=== PATIENT | female | born 1970 | race American Indian/Alaskan Native ===

== ENCOUNTER 2017-02-12 16:00 | Emergency (ER) | payer SELFPAY ==
[2017-02-12 16:31] VITALS: BP 138/102
--- NOTE | 2017-02-12 16:34 | Emergency Department Report ---
Chief Complaint: Abdominal Pain Stated Complaint: CROHN'S DISEASE/BODY ACHES Time Seen by Provider: 02/12/17 16:30 - HPI History of Present Illness: pt c/o a few days of lower abd pain and passing bloody stools. PT states this feels like the last time she was told that she had an infection that started with a "D" PT states she has a hx of crohn's - ROS Review of Systems: + back pain + nausea - vomiting + loose bloody stools - menstrual problem - Exam Vital Signs: Vital Signs 02/12/17 16:24 Temperature 98.4 F Pulse Rate 58 L Respiratory 18 Rate Blood Pressure 138/102 O2 Sat by Pulse 96 Oximetry Physical Exam: pt looks well, non toxic. gcs 15 abd soft, + tenderness to LLQ MSE screening note: Focused history and physical exam performed. Due to findings the following was ordered: labs ED Disposition for MSE Condition: Stable Instructions: Abdominal Pain (ED)
[2017-02-12 18:02] LABS: Basophils % (Auto) 0.9 % (0.0-1.8); Eosinophils % (Auto) 2.4 % (0.0-4.3); Hematocrit 26.1 % (30.3-42.9); Hemoglobin 7.9 gm/dl (10.1-14.3); Mean Corpuscular HGB Conc 30 % (30-34); Mean Corpuscular Hemoglobin 17 pg (28-32); Mean Corpuscular Volume 56 fl (79-97); Platelet Count 450 K/mm3 (140-440); Red Blood Count 4.65 M/mm3 (3.65-5.03); Red Cell Distribution Width 17.4 % (13.2-15.2); White Blood Count 5.4 K/mm3 (4.5-11.0)
[2017-02-12 18:11] LABS: INR 0.99 (0.87-1.13)
[2017-02-12 18:12] LABS: Partial Thromboplastin Time 31.1 Sec. (24.2-36.6)
[2017-02-12 18:18] LABS: Alanine Aminotransferase 6 units/L (7-56); Albumin 3.5 g/dL (3.9-5); Albumin/Globulin Ratio 0.8 %; Alkaline Phosphatase 95 units/L (35-129); Anion Gap 17 mmol/L; BUN/Creatinine Ratio 11.25; Bilirubin,Total 0.2 mg/dL (0.1-1.2); Blood Urea Nitrogen 9 mg/dL (7-17); Carbon Dioxide 26 mmol/L (22-30); Chloride 100.3 mmol/L (98-107); Glucose 91 mg/dL (65-100); Lipase 18 units/L (13-60); Potassium 3.1 mmol/L (3.6-5.0); Sodium 140 mmol/L (137-145); Total Protein 7.8 g/dL (6.3-8.2)
--- NOTE | 2017-02-13 15:08 | ED Elopement Review ---
ED Pt Elopement review - Results review Lab results: Laboratory Tests 02/12/17 02/12/17 02/12/17 17:49 17:49 17:49 WBC 5.4 RBC 4.65 Hgb 7.9 L Hct 26.1 L MCV 56 L MCH 17 L MCHC 30 RDW 17.4 H Plt Count 450 H Lymph % (Auto) 24.9 Luce % (Auto) 10.3 H Eos % (Auto) 2.4 Baso % (Auto) 0.9 Lymph # 1.4 Luce # 0.6 Eos # 0.1 Baso # 0.0 Seg Neutrophils % 61.5 Seg Neutrophils # 3.3 PT 13.0 INR 0.99 APTT 31.1 Sodium 140 Potassium 3.1 L Chloride 100.3 Carbon Dioxide 26 Anion Gap 17 BUN 9 Creatinine 0.8 Estimated GFR > 60 BUN/Creatinine Ratio 11.25 Glucose 91 Calcium 9.0 Total Bilirubin 0.2 AST 12 ALT 6 L Alkaline Phosphatase 95 Total Protein 7.8 Albumin 3.5 L Albumin/Globulin Ratio 0.8 Lipase 18 - Call Back decision Pt Call Back Decision: No action required
== END 2017-02-12 20:55 | disposition left against medical advice (07) ==
LOC: ED 16:00
DX: R10.32 Left lower quadrant pain (principal); K92.1 Melena; M54.9 Dorsalgia, unspecified; K50.90 Crohn's disease, unspecified, without complications; Z53.21 Procedure and treatment not carried out due to patient leaving prior to being seen by health care provider
CPT/HCPCS: 36415; 80053; 83690; 85025; 85610; 85730

== ENCOUNTER 2020-03-31 22:58 | Emergency (ER) | payer MEDICAID ==
[2020-04-01 00:14] LABS: Basophils % (Auto) 0.4 % (0.0-1.8); Eosinophils # (Auto) 0.1 K/mm3 (0.0-0.4); Eosinophils % (Auto) 0.9 % (0.0-4.3); Hematocrit 34.8 % (30.3-42.9); Hemoglobin 10.8 gm/dl (10.1-14.3); Lymphocytes # (Auto) 1.3 K/mm3 (1.2-5.4); Lymphocytes % (Auto) 20.9 % (13.4-35.0); Mean Corpuscular HGB Conc 31 % (30-34); Monocytes # (Auto) 0.7 K/mm3 (0.0-0.8); Monocytes % (Auto) 11.8 % (0.0-7.3); Platelet Count 465 K/mm3 (140-440); Red Blood Count 5.09 M/mm3 (3.65-5.03); Red Cell Distribution Width 17.9 % (13.2-15.2)
--- NOTE | 2020-04-01 00:14 | Emergency Department Report ---
ED GI Bleed HPI - General Chief complaint: GI Bleed Stated complaint: ABDOMINAL AND CHEST PAIN Time Seen by Provider: 04/01/20 00:09 Source: patient Mode of arrival: Ambulatory Limitations: No Limitations - History of Present Illness Initial comments: Patient is a 42-year-old female with history of Crohn's that presents emergency room with complaints of Crohn's flareup, abdominal pain, dizziness, nausea, chest discomfort. Patient dates her symptoms been going on for 2 to 3 days. Patient states that her rectal bleeding increase today. Patient states that copious amounts of blood coming from her rectum. Patient describes it as bright red blood. Patient states she has a long history of Crohn's. Patient states that she has nausea without vomiting. Patient states her symptoms are better with rest and worse with exertion. Patient dates her abdominal pain is a 10 out of 10. Patient states she called her GI doctor and he told her to come into the hospital. MD complaint: blood streaked stool -: Sudden Location: LLQ, RLQ Radiation: none Severity scale (0 -10): 10 Quality: sharp Consistency: constant Improves with: rest Worsens with: movement Context: history of GI bleed, other Associated Symptoms: abdominal pain, nausea, malaise, other. denies: vomiting, epistaxis, fever/chills, headaches, loss of appetite, rash, shortness of breath, syncope, weakness Treatments Prior to Arrival: none - Related Data Previous Rx's Medication Instructions Recorded Last Taken Type labetaloL [Labetalol 200mg TAB] 200 mg PO BID #60 tablet 12/22/19 Unknown Rx levoFLOXacin [Levaquin TAB] 500 mg PO Q24HR #7 tablet 04/01/20 Unknown Rx metroNIDAZOLE [Flagyl TAB] 500 mg PO Q8HR 7 Days #21 tablet 04/01/20 Unknown Rx oxyCODONE /ACETAMINOPHEN [Percocet 1 tab PO Q6HR PRN #12 tablet 04/01/20 Unknown Rx 5/325 mg] predniSONE [Deltasone] 40 mg PO QDAY #5 tab 04/01/20 Unknown Rx Allergies Allergy/AdvReac Type Severity Reaction Status Date / Time Penicillins Allergy Rash Verified 08/19/14 12:46 ED Review of Systems ROS: Stated complaint: ABDOMINAL AND CHEST PAIN Other details as noted in HPI Constitutional: denies: chills, fever Eyes: denies: eye pain, eye discharge, vision change ENT: denies: ear pain, throat pain Respiratory: denies: cough, shortness of breath, wheezing Cardiovascular: denies: palpitations Endocrine: no symptoms reported Gastrointestinal: abdominal pain, nausea, hematochezia. denies: vomiting, constipation, hematemesis, melena Genitourinary: denies: urgency, dysuria, discharge Musculoskeletal: denies: back pain, joint swelling, arthralgia Skin: denies: rash, lesions Neurological: denies: headache, weakness, paresthesias Psychiatric: denies: anxiety, depression Hematological/Lymphatic: denies: easy bleeding, easy bruising ED Past Medical Hx - Past Medical History Previous Medical History?: Yes Hx Congestive Heart Failure: No Hx Diabetes: No Hx Pulmonary Embolism: No Hx Sickle Cell Disease: Yes (SICKLE CELL TRAIT) Hx Arthritis: Yes (rhuematoid) Hx Headaches / Migraines: No Hx Kidney Stones: No Hx Asthma: No Hx COPD: No Hx Tuberculosis: No Hx Dementia: No Hx HIV: No Additional medical history: Anemia. Crohns disease. rheumatiod arthritis - Surgical History Past Surgical History?: Yes Hx Coronary Stent: No Hx Open Heart Surgery: No Hx Cholecystectomy: No Hx Appendectomy: No Hx Breast Surgery: No Additional Surgical History: D+C - Family History Family history: no significant - Social History Smoking Status: Current Every Day Smoker Substance Use Type: None - Medications Home Medications: Home Medications Medication Instructions Recorded Confirmed Last Taken Type labetaloL [Labetalol 200mg TAB] 200 mg PO BID #60 tablet 12/22/19 Unknown Rx levoFLOXacin [Levaquin TAB] 500 mg PO Q24HR #7 tablet 04/01/20 Unknown Rx metroNIDAZOLE [Flagyl TAB] 500 mg PO Q8HR 7 Days #21 tablet 04/01/20 Unknown Rx oxyCODONE /ACETAMINOPHEN [Percocet 1 tab PO Q6HR PRN #12 tablet 04/01/20 Unknown Rx 5/325 mg] predniSONE [Deltasone] 40 mg PO QDAY #5 tab 04/01/20 Unknown Rx ED Physical Exam - General Limitations: No Limitations General appearance: alert, in no apparent distress - Head Head exam: Present: atraumatic, normocephalic - Eye Eye exam: Present: normal appearance - ENT ENT exam: Present: mucous membranes moist - Neck Neck exam: Present: normal inspection - Respiratory Respiratory exam: Present: normal lung sounds bilaterally. Absent: respiratory distress - Cardiovascular Cardiovascular Exam: Present: regular rate, normal rhythm. Absent: systolic murmur, diastolic murmur, rubs, gallop - GI/Abdominal GI/Abdominal exam: Present: soft, tenderness (Bilateral lower quadrant tenderness to palpation.), normal bowel sounds - Extremities Exam Extremities exam: Present: normal inspection - Back Exam Back exam: Present: normal inspection - Neurological Exam Neurological exam: Present: alert, oriented X3 - Psychiatric Psychiatric exam: Present: normal affect, normal mood - Skin Skin exam: Present: warm, dry, intact, normal color. Absent: rash ED Course Vital Signs 03/31/20 04/01/20 04/01/20 23:13 00:27 03:15 Temperature 98.5 F Pulse Rate 108 H 96 H 95 H Respiratory 16 17 17 Rate Blood Pressure 155/99 Blood Pressure 156/111 159/97 [Right] O2 Sat by Pulse 95 99 97 Oximetry - Reevaluation(s) Reevaluation #1: Patient states that her dizziness and nausea have resolved. Patient states her abdominal pain is better but is starting to come back. Patient will be given another dose of Dilaudid and Solu-Medrol and Levaquin. Patient states she agrees with discharge. I discussed all results and clinical findings with patient. I discussed plan of care with patient. Patient agrees with plan of care. Patient is stable for discharge. Patient will be discharged home. Patient given discharge instructions. Patient voiced understanding of discharge instructions. 04/01/20 02:52 Reevaluation #2: Patient's pain improved. Patient is ready for discharge. Discharge activated. 04/01/20 03:37 - Consultations Consultation #1: Discussed case with GI, Dr. Heaton. Dr. eHaton states that this patient is a frequent flyer. I reviewed labs with Dr. Heaton and the patient's presenting illness. Dr. Heaton recommends discharge with Levaquin and Flagyl and a steroids of prednisone 40 mg daily for a week and the GI will write a 3-week taper for the patient. Patient will also need to follow-up with GI on Friday. 04/01/20 02:39 04/01/20 03:36 ED Medical Decision Making - Lab Data Result diagrams: 03/31/20 23:38 03/31/20 23:38 - Medical Decision Making Patient is a 49-year-old female that presents emergency room with complaints of Crohn's flare and bright red blood per rectum, dizziness, nausea. Patient has severe Crohn's disease.. Patient has come to this hospital multiple times. Patient's labs are essentially unremarkable. Patient was given fluids in the ER and pain meds. Patient's dizziness and abdominal pain improved with treatment. Patient given a second dose of Dilaudid prior to discharge and her pain improved dramatically. Patient also given Levaquin and Solu-Medrol which improved her pain. Patient discharged home with Levaquin, Flagyl, oxycodone and prednisone 40 mg. Patient stable for discharge. I discussed the case with GI and GI recommends not admitting the patient and sending her home with outpatient treatment and to follow-up with her GI as soon as possible. - Differential Diagnosis Crohn's flareup, abdominal pain, dizziness, nausea, dehydration, BRBPR Critical care attestation.: If time is entered above; I have spent that time in minutes in the direct care of this critically ill patient, excluding procedure time. ED Disposition Clinical Impression: BRBPR (bright red blood per rectum), Dizziness, Nausea alone Crohn's colitis Qualifiers: Digestive disease complication type: without complication Qualified Code(s): K50.10 - Crohn's disease of large intestine without complications Abdominal pain Qualifiers: Abdominal location: lower abdomen, unspecified Qualified Code(s): R10.30 - Lower abdominal pain, unspecified UTI (urinary tract infection) Qualifiers: Urinary tract infection type: acute cystitis Hematuria presence: with hematuria Qualified Code(s): N30.01 - Acute cystitis with hematuria Disposition: - TO HOME OR SELFCARE Is pt being admited?: No Does the pt Need Aspirin: No Condition: Stable Instructions: Rectal Bleeding (ED), Crohn Disease (ED), Urinary Tract Infection in Women (ED) Additional Instructions: Patient to follow-up with primary care in 2 to 3 days. Patient to follow-up with gastroenterology in 2 to 3 days. Patient to rest. Patient to increase w ater. Patient to avoid strenuous exercise or heavy lifting until cleared by gastroenterology. Patient to take Tylenol or ibuprofen as needed for pain. Patient to take meds as directed. Patient to return to the ER if condition worsens, changes or new symptoms arise. Prescriptions: predniSONE [Deltasone] 40 mg PO QDAY #5 tab metroNIDAZOLE [Flagyl TAB] 500 mg PO Q8HR 7 Days #21 tablet levoFLOXacin [Levaquin TAB] 500 mg PO Q24HR #7 tablet oxyCODONE /ACETAMINOPHEN [Percocet 5/325 mg] 1 tab PO Q6HR PRN #12 tablet PRN Reason: Pain Referrals: PRIMARY CARE, [Primary Care Provider] - 2-3 Days SCOT HEATON MD [Staff Physician] - 2-3 Days Forms: Accompanied Note Time of Disposition: 02:57
[2020-04-01] MEDS ORDERED: SODIUM CHLORIDE 0.9% 1000 ML 1,000 ML IV ONE (00:18)
[2020-04-01] MEDS ORDERED: HYDROmorphone 1 MG/1 ML INJ IV ONE ×2 (00:18→02:47)
[2020-04-01 00:19] LABS: Alanine Aminotransferase 8 units/L (7-56); Albumin 3.6 g/dL (3.9-5); BUN/Creatinine Ratio 27; Blood Urea Nitrogen 16 mg/dL (7-17); Calcium 9.1 mg/dL (8.4-10.2); Hemolysis Index 0
[2020-04-01 00:26] LABS: Mean Corpuscular Volume 68 fl (79-97)
[2020-04-01 00:55] LABS: Bacteria,Urine 1+ /HPF (Negative); Bilirubin,Urine SM (Negative); Blood,Urine SM (Negative); Color,Urine Yellow (Yellow); Mucus,Urine 1+ /HPF
[2020-04-01 01:10] LABS: Ictotest,Urine Negative (Negative)
[2020-04-01] MEDS ORDERED: methylPREDNISolone Sod Succinate 125 MG/2 ML INJ IV ONE (02:47)
[2020-04-01 03:16] VITALS: BP 159/97
== END 2020-04-01 04:00 | disposition home or self-care (01) ==
LOC: ED 22:58
DX: K50.10 Crohn's disease of large intestine without complications (principal); N39.0 Urinary tract infection, site not specified; K62.5 Hemorrhage of anus and rectum; M13.88 Other specified arthritis, other site; D57.3 Sickle-cell trait; F17.200 Nicotine dependence, unspecified, uncomplicated; Z86.2 Personal history of diseases of the blood and blood-forming organs and certain disorders involving the immune mechanism; Z88.0 Allergy status to penicillin
CPT/HCPCS: 36415; 80053; 81001; 85025; 86850; 86900; 86901; 87086; 96361; 96365; 96375; 96376; 99283; J1170; J1956; J2930; J7030

== ENCOUNTER 2020-08-10 13:34 | Emergency (ER) | payer MEDICAID ==
[2020-08-10 14:00] VITALS: BP 153/108
[2020-08-10 14:49] LABS: Basophils % (Auto) 0.3 % (0.0-1.8); Eosinophils % (Auto) 0.2 % (0.0-4.3); Hematocrit 33.7 % (30.3-42.9); Hemoglobin 10.3 gm/dl (10.1-14.3); Lymphocytes # (Auto) 1.5 K/mm3 (1.2-5.4); Lymphocytes % (Auto) 24.4 % (13.4-35.0); Mean Corpuscular HGB Conc 31 % (30-34); Monocytes # (Auto) 0.8 K/mm3 (0.0-0.8); Monocytes % (Auto) 13.1 % (0.0-7.3); Platelet Count 456 K/mm3 (140-440); Red Blood Count 5.24 M/mm3 (3.65-5.03); Red Cell Distribution Width 19.3 % (13.2-15.2)
[2020-08-10 15:04] LABS: BUN/Creatinine Ratio 13; Blood Urea Nitrogen 12 mg/dL (7-17); Calcium 9.2 mg/dL (8.4-10.2); Hemolysis Index 1
[2020-08-10 15:08] LABS: Mean Corpuscular Volume 64 fl (79-97)
[2020-08-10] MEDS ORDERED: ONDANSETRON 4 MG/2 ML INJ IV ONE (16:56)
[2020-08-10] MEDS ORDERED: MORPHINE 4 MG/1 ML INJ IV ONE ×2 (16:56→19:45)
[2020-08-10] MEDS ORDERED: SODIUM CHLORIDE 0.9% 1000 ML 1,000 ML IV ONE (16:56)
--- NOTE | 2020-08-10 17:51 | Emergency Department Report ---
ED Abdominal Pain HPI - General Chief Complaint: Abdominal Pain Stated Complaint: CROHNS FLARE Time Seen by Provider: 08/10/20 16:37 Source: patient Mode of arrival: Ambulatory Limitations: No Limitations - History of Present Illness Initial Comments: This is a 49-year-old female nontoxic, well nourished in appearance, no acute signs of distress presents to the ED with c/o of nausea and vomiting and abdominal pain several days. Patient describes vomiting as food content and yellow gastric acid. Patient describes abdominal pain as cramping and aching with level of 8/10 diffuse. Patient has hx of Chrons disease and sees GI doctor. Patient stated symptoms are similar to Chrons flare. Agrees to blood in stool with some mucus. Patient denies chest pain, short of breath, fever, hemoptysis, chills, headache, stiff neck, numbness or tingling. Patient denies any diarrhea or constipation. Denies any vomiting blood. Patient denies any recent travels. Patient stated allergies to penicillin. MD Complaint: abdominal pain -: days(s) Location: diffuse Radiation: none Migration to: no migration Severity: mild Severity scale (0 -10): 8 Quality: cramping, aching Consistency: constant Improves With: nothing Worsens With: nothing Associated Symptoms: nausea, vomiting, diarrhea, hematochezia. denies: fever, chills, constipation, dysuria, hematemesis, melena, hematuria, anorexia, syncope - Related Data Previous Rx's Medication Instructions Recorded Last Taken Type labetaloL [Labetalol 200mg TAB] 200 mg PO BID #60 tablet 12/22/19 Unknown Rx levoFLOXacin [Levaquin TAB] 500 mg PO Q24HR #7 tablet 04/01/20 Unknown Rx metroNIDAZOLE [Flagyl TAB] 500 mg PO Q8HR 7 Days #21 tablet 04/01/20 Unknown Rx oxyCODONE /ACETAMINOPHEN [Percocet 1 tab PO Q6HR PRN #12 tablet 04/01/20 Unknown Rx 5/325 mg] predniSONE [Deltasone] 40 mg PO QDAY #5 tab 04/01/20 Unknown Rx Ciprofloxacin HCl [Ciprofloxacin 500 mg PO Q12HR #14 tab 08/10/20 Unknown Rx TAB] Ondansetron [Zofran Odt] 4 mg PO Q8HR PRN #12 tab.rapdis 09/24/20 Unknown Rx Prednisone [predniSONE 10 mg 10 mg PO .TAPER #1 tab.ds.pk 08/10/20 Unknown Rx (6-Day Pack, 21 Tabs)] metroNIDAZOLE [Flagyl] 500 mg PO Q12HR #14 tab 08/10/20 Unknown Rx Allergies Allergy/AdvReac Type Severity Reaction Status Date / Time Penicillins Allergy Rash Verified 08/10/20 13:57 ED Review of Systems ROS: Stated complaint: CROHNS FLARE Other details as noted in HPI Constitutional: denies: chills, fever Eyes: denies: eye pain, eye discharge, vision change ENT: denies: ear pain, throat pain Respiratory: denies: cough, shortness of breath, wheezing Cardiovascular: denies: chest pain, palpitations Endocrine: no symptoms reported Gastrointestinal: abdominal pain, nausea, vomiting, diarrhea, hematochezia. denies: constipation, hematemesis, melena Genitourinary: denies: urgency, dysuria, discharge Musculoskeletal: denies: back pain, joint swelling, arthralgia Skin: denies: rash, lesions Neurological: denies: headache, weakness, paresthesias Psychiatric: denies: anxiety, depression Hematological/Lymphatic: denies: easy bleeding, easy bruising ED Past Medical Hx - Past Medical History Previous Medical History?: Yes Hx Congestive Heart Failure: No Hx Diabetes: No Hx Pulmonary Embolism: No Hx Sickle Cell Disease: Yes (SICKLE CELL TRAIT) Hx Arthritis: Yes (rhuematoid) Hx Headaches / Migraines: No Hx Kidney Stones: No Hx Asthma: No Hx COPD: No Hx Tuberculosis: No Hx Dementia: No Hx HIV: No Additional medical history: Anemia. Crohns disease. rheumatiod arthritis - Surgical History Past Surgical History?: Yes Hx Coronary Stent: No Hx Open Heart Surgery: No Hx Cholecystectomy: No Hx Appendectomy: No Hx Breast Surgery: No Additional Surgical History: D+C - Social History Smoking Status: Current Every Day Smoker Substance Use Type: Alcohol - Medications Home Medications: Home Medications Medication Instructions Recorded Confirmed Last Taken Type labetaloL [Labetalol 200mg TAB] 200 mg PO BID #60 tablet 12/22/19 Unknown Rx levoFLOXacin [Levaquin TAB] 500 mg PO Q24HR #7 tablet 04/01/20 Unknown Rx metroNIDAZOLE [Flagyl TAB] 500 mg PO Q8HR 7 Days #21 tablet 04/01/20 Unknown Rx oxyCODONE /ACETAMINOPHEN [Percocet 1 tab PO Q6HR PRN #12 tablet 04/01/20 Unknown Rx 5/325 mg] predniSONE [Deltasone] 40 mg PO QDAY #5 tab 04/01/20 Unknown Rx Ciprofloxacin HCl [Ciprofloxacin 500 mg PO Q12HR #14 tab 08/10/20 Unknown Rx TAB] Ondansetron [Zofran Odt] 4 mg PO Q8HR PRN #12 tab.rapdis 08/10/20 Unknown Rx Prednisone [predniSONE 10 mg 10 mg PO .TAPER #1 tab.ds.pk 08/10/20 Unknown Rx (6-Day Pack, 21 Tabs)] metroNIDAZOLE [Flagyl] 500 mg PO Q12HR #14 tab 08/10/20 Unknown Rx ED Physical Exam - General Limitations: No Limitations General appearance: alert, in no apparent distress - Head Head exam: Present: atraumatic, normocephalic - Eye Eye exam: Present: normal appearance - Neck Neck exam: Present: normal inspection, full ROM. Absent: tenderness, meningismus, lymphadenopathy - Respiratory Respiratory exam: Present: normal lung sounds bilaterally. Absent: respiratory distress, wheezes, rales, rhonchi, stridor, chest wall tenderness, accessory muscle use, decreased breath sounds, prolonged expiratory - Cardiovascular Cardiovascular Exam: Present: regular rate, normal rhythm, tachycardia, normal heart sounds. Absent: irregular rhythm, systolic murmur, diastolic murmur, rubs, gallop - GI/Abdominal GI/Abdominal exam: Present: soft, tenderness (diffuse), normal bowel sounds. Absent: distended, guarding, rebound, rigid, diminished bowel sounds - Rectal Rectal exam: Present: normal inspection, normal rectal tone, heme (+) stool, bloody stool, other (Kahlil Wyatt RN present during exam). Absent: decreased rectal tone, black stool, fecal impaction, hemorrhoids, mass, tenderness - Extremities Exam Extremities exam: Present: normal inspection, full ROM - Back Exam Back exam: Present: normal inspection, full ROM. Absent: tenderness, CVA tenderness (R), CVA tenderness (L), muscle spasm, paraspinal tenderness, vertebral tenderness, rash noted - Neurological Exam Neurological exam: Present: alert, oriented X3, normal gait - Psychiatric Psychiatric exam: Present: normal affect, normal mood - Skin Skin exam: Present: warm, dry, intact, normal color. Absent: rash ED Course Vital Signs 08/10/20 08/10/20 08/10/20 13:57 17:23 21:14 Temperature 98.7 F 98.5 F Pulse Rate 110 H 89 Respiratory 20 20 20 Rate Blood Pressure 153/108 O2 Sat by Pulse 99 100 Oximetry - Reevaluation(s) Reevaluation #1: 08/10/20 17:51 Patient is speaking in full sentences with no signs of distress noted. - Consultations Consultation #1: 08/10/20 21:01 Patient has been consulted with Dr. Heck about patient history, physical exam, and labs/CT results and agrees to ED plan of care and discharge plan of care. ED Medical Decision Making - Lab Data Result diagrams: 08/10/20 14:33 08/10/20 14:33 Lab Results 08/10/20 08/10/20 08/10/20 Range/Units 14:33 14:33 17:30 WBC 6.1 (4.5-11.0) K/mm3 RBC 5.24 H (3.65-5.03) M/mm3 Hgb 10.3 (10.1-14.3) gm/dl Hct 33.7 (30.3-42.9) % MCV 64 L (79-97) fl MCH 20 L (28-32) pg MCHC 31 (30-34) % RDW 19.3 H (13.2-15.2) % Plt Count 456 H (140-440) K/mm3 Lymph % (Auto) 24.4 (13.4-35.0) % Divide % (Auto) 13.1 H (0.0-7.3) % Eos % (Auto) 0.2 (0.0-4.3) % Baso % (Auto) 0.3 (0.0-1.8) % Lymph # (Auto) 1.5 (1.2-5.4) K/mm3 Divide # (Auto) 0.8 (0.0-0.8) K/mm3 Eos # (Auto) 0.0 (0.0-0.4) K/mm3 Baso # (Auto) 0.0 (0.0-0.1) K/mm3 Seg Neutrophils % 62.0 (40.0-70.0) % Seg Neutrophils # 3.8 (1.8-7.7) K/mm3 Sodium 137 (137-145) mmol/L Potassium 3.5 L (3.6-5.0) mmol/L Chloride 100.0 (98-107) mmol/L Carbon Dioxide 20 L (22-30) mmol/L Anion Gap 21 mmol/L BUN 12 (7-17) mg/dL Creatinine 0.9 (0.6-1.2) mg/dL Estimated GFR > 60 ml/min BUN/Creatinine Ratio 13 % Glucose 84 (65-100) mg/dL Calcium 9.2 (8.4-10.2) mg/dL Total Bilirubin < 0.20 (0.1-1.2) mg/dL Direct Bilirubin < 0.2 (0-0.2) mg/dL Indirect Bilirubin 0.0 mg/dL AST 16 (5-40) units/L ALT 15 (7-56) units/L Alkaline Phosphatase 81 (35-129) units/L Total Protein 6.9 (6.3-8.2) g/dL Albumin 3.4 L (3.9-5) g/dL Albumin/Globulin Ratio 1.0 % Lipase 20 (13-60) units/L Urine Color (Yellow) Urine Turbidity (Clear) Urine pH (5.0-7.0) Ur Specific [place] (1.003-1.030) Urine Protein (Negative) mg/dL Urine Glucose (UA) (Negative) mg/dL Urine Ketones (Negative) mg/dL Urine Blood (Negative) Urine Nitrite (Negative) Urine Bilirubin (Negative) Urine Urobilinogen (<2.0) mg/dL Ur Leukocyte Esterase (Negative) Urine WBC (Auto) (0.0-6.0) /HPF Urine RBC (Auto) (0.0-6.0) /HPF U Epithel Cells (Auto) (0-13.0) /HPF Urine HCG, Qual (Negative) 08/10/20 Range/Units 20:06 WBC (4.5-11.0) K/mm3 RBC (3.65-5.03) M/mm3 Hgb (10.1-14.3) gm/dl Hct (30.3-42.9) % MCV (79-97) fl MCH (28-32) pg MCHC (30-34) % RDW (13.2-15.2) % Plt Count (140-440) K/mm3 Lymph % (Auto) (13.4-35.0) % Divide % (Auto) (0.0-7.3) % Eos % (Auto) (0.0-4.3) % Baso % (Auto) (0.0-1.8) % Lymph # (Auto) (1.2-5.4) K/mm3 Divide # (Auto) (0.0-0.8) K/mm3 Eos # (Auto) (0.0-0.4) K/mm3 Baso # (Auto) (0.0-0.1) K/mm3 Seg Neutrophils % (40.0-70.0) % Seg Neutrophils # (1.8-7.7) K/mm3 Sodium (137-145) mmol/L Potassium (3.6-5.0) mmol/L Chloride (98-107) mmol/L Carbon Dioxide (22-30) mmol/L Anion Gap mmol/L BUN (7-17) mg/dL Creatinine (0.6-1.2) mg/dL Estimated GFR ml/min BUN/Creatinine Ratio % Glucose (65-100) mg/dL Calcium (8.4-10.2) mg/dL Total Bilirubin (0.1-1.2) mg/dL Direct Bilirubin (0-0.2) mg/dL Indirect Bilirubin mg/dL AST (5-40) units/L ALT (7-56) units/L Alkaline Phosphatase (35-129) units/L Total Protein (6.3-8.2) g/dL Albumin (3.9-5) g/dL Albumin/Globulin Ratio % Lipase (13-60) units/L Urine Color Straw (Yellow) Urine Turbidity Clear (Clear) Urine pH 6.0 (5.0-7.0) Ur Specific [place] 1.010 (1.003-1.030) Urine Protein <15 mg/dl (Negative) mg/dL Urine Glucose (UA) Neg (Negative) mg/dL Urine Ketones Neg (Negative) mg/dL Urine Blood Neg (Negative) Urine Nitrite Neg (Negative) Urine Bilirubin Neg (Negative) Urine Urobilinogen < 2.0 (<2.0) mg/dL Ur Leukocyte Esterase Neg (Negative) Urine WBC (Auto) 2.0 (0.0-6.0) /HPF Urine RBC (Auto) 1.0 (0.0-6.0) /HPF U Epithel Cells (Auto) 1.0 (0-13.0) /HPF Urine HCG, Qual Negative (Negative) - Radiology Data CT abdomen pelvis w con INDICATION / CLINICAL INFORMATION: abd pain w/ lower gi bleed. TECHNIQUE: Axial CT imaging of abdomen and pelvis was obtained with IV contrast. Coronal and sagittal reformatted imaging obtained and reviewed. All CT scans at this location are performed using CT dose reduction for ALARA by means of automated exposure control. COMPARISON: Prior CT abdomen/pelvis, 02/24/2020 FINDINGS: CT abdomen with contrast demonstrates normal appearance of the liver, spleen, pancreas, kidneys, and adrenal glands. Gallbladder is grossly unremarkable. No biliary dilatation. CT pelvis with contrast demonstrates prominent colonic wall thickening and inflammatory change of the rectum and, to a lesser extent, the sigmoid colon. There is also mild colonic wall thickening throughout the descending colon. The remainder of the colon appears unaffected. A normal appendix is present. The remainder of the GI tract is unremarkable. No pelvic mass is noted. Small left ovarian cyst is present. Visualized lung bases are clear. No significant osseous abnormality noted. IMPRESSION: 1. Colonic wall thickening and inflammatory change involving the descending colon, sigmoid colon, and rectum. This is most severe throughout the rectum. Etiology is most likely secondary to colitis, possibly inflammatory bowel disease. Infectious colitis could also have this appearance and clinical correlation is recommended. Signer Name: Chary Kennedy MD Signed: 08/10/2020 7:53 PM Workstation Name: [id number] - Medical Decision Making This is a 49-year-old female that presents with Crohn's flare with colitis. Patient is stable and was examined by me. Negative signs of symptoms of appendicitis. Labs obtained. UA obtained. CT of abdomen obtained and dictated by the radiologist. Patient is notified of the report with no questions noted by the patient. Vital signs are stable prior to discharge. Patient received medical treatment in the ED which patient stated symptoms has resovled and subsided. Was instructed note to operate any machinery due to possible drowsiness and stated someone will drive the patient home. A by mouth challenge has been obtained and patient tolerated well with no nausea vomiting. Patient also received Cipro and Flagyl IV. Patient be discharged with this as well with steroids as well. Patient does have a follow-up GI appointment that she stated to me. Patient was also instructed to Follow-up with a navy fighter [employer] doctor in 3-5 days or if symptoms worsen and continue return to emergency room as soon as possible. At time of discharge, the patient does not seem toxic or ill in appearance. No acute signs of distress noted. Patient agrees to discharge treatment plan of care. No further questions noted by the patient. Critical care attestation.: If time is entered above; I have spent that time in minutes in the direct care of this critically ill patient, excluding procedure time. ED Disposition Clinical Impression: Crohn's colitis Qualifiers: Digestive disease complication type: unspecified complication Qualified Code(s): K50.119 - Crohn's disease of large intestine with unspecified complications Disposition: TO HOME OR SELFCARE Is pt being admited?: No Does the pt Need Aspirin: No Condition: Stable Instructions: Rectal Bleeding (ED), Crohn Disease (ED) Additional Instructions: Follow-up with a navy fighter pilot doctor in 3-5 days or if symptoms worsen and continue return to emergency room as soon as possible. Prescriptions: Ciprofloxacin HCl [Ciprofloxacin TAB] 500 mg PO Q12HR #14 tab metroNIDAZOLE [Flagyl] 500 mg PO Q12HR #14 tab Prednisone [predniSONE 10 mg (6-Day Pack, 21 Tabs)] 10 mg PO .TAPER #1 tab.ds.pk Ondansetron [Zofran Odt] 4 mg PO Q8HR PRN #12 tab.rapdis PRN Reason: Nausea Referrals: [facility] MD AMINATA [Primary Care Provider] - 3-5 Days PRIMARY MD CURTIS [Referring] - 3-5 Days FRANCESCO RICH MD [Staff Physician] - 3-5 Days [facility] [Provider Group] - 3-5 Days Forms: Work/School Release Form(ED)
[2020-08-10 18:49] LABS: Alanine Aminotransferase 15 units/L (7-56); Albumin 3.4 g/dL (3.9-5)
[2020-08-10 18:53] LABS: Bilirubin,Direct < 0.2 mg/dL (0-0.2)
[2020-08-10 20:23] LABS: Bilirubin,Urine NEG (Negative); Blood,Urine NEG (Negative); Color,Urine Straw (Yellow); Protein,Urine <15 mg/dL mg/dL (Negative); Urobilinogen,Urine < 2.0 mg/dL (<2.0)
[2020-08-10 20:44] LABS: HCG Qualitative,Urine Negative (Negative)
--- NOTE | 2020-08-10 20:57 | Cat Scan Report ---
CT abdomen pelvis w con INDICATION / CLINICAL INFORMATION: abd pain w/ lower gi bleed. TECHNIQUE: Axial CT imaging of abdomen and pelvis was obtained with IV contrast. Coronal and sagittal reformatte d imaging obtained and reviewed. All CT scans at this location are performed using CT dose reduction for ALARA by means of automated exposure control. COMPARISON: Prior CT abdomen/pelvis, 02/24/2020 FINDINGS: CT abdomen with contrast demonstrates normal appearance of the liver, spleen, pancreas, kidneys, and adrenal glands. Gallbladder is grossly unremarkable. No biliary dilatation. CT pelvis with contrast demonstrates prominent colonic wall thickening and inflammatory change of the rectum and, to a lesser extent, the sigmoid colon. There is also mild colonic wall thickening throug hout the descending colon. The remainder of the colon appears unaffected. A normal appendix is presen t. The remainder of the GI tract is unremarkable. No pelvic mass is noted. Small left ovarian cyst is present. Visualized lung bases are clear. No significant osseous abnormality noted. IMPRESSION: 1. Colonic wall thickening and inflammatory change involving the descending colon, sigmoid colon, and rectum. This is most severe throughout the rectum. Etiology is most likely secondary to colitis, pos sibly inflammatory bowel disease. Infectious colitis could also have this appearance and clinical cor relation is recommended. Signer Name: Chary Kennedy MD Signed: 08/10/2020 8:53 PM Workstation Name: [email or web address]
[2020-08-10] MEDS ORDERED: levoFLOXacin 500 MG TAB PO ONE (21:00)
[2020-08-10] MEDS ORDERED: metroNIDAZOLE/NS 500 MG/100 ML 500 MG/100 ML BAG IV ONE (21:00)
== END 2020-08-10 23:10 | disposition home or self-care (01) ==
LOC: ED 13:34
DX: K50.90 Crohn's disease, unspecified, without complications (principal); R11.2 Nausea with vomiting, unspecified; M19.91 Primary osteoarthritis, unspecified site; D57.1 Sickle-cell disease without crisis; F17.200 Nicotine dependence, unspecified, uncomplicated; Z79.2 Long term (current) use of antibiotics; Z79.899 Other long term (current) drug therapy; Z88.0 Allergy status to penicillin
CPT/HCPCS: 36415; 74177; 80048; 80076; 81001; 81025; 82271; 83690; 85025; 96361; 96365; 96375; 96376; 99284; J2270; J2405; J7030; Q9967

== ENCOUNTER 2022-03-01 06:22 | Emergency (ER) | payer MEDICAID ==
--- NOTE | 2022-03-01 06:59 | XRay Report ---
CHEST 2 VIEWS INDICATION / CLINICAL INFORMATION: chest pain. FINDINGS: SUPPORT DEVICES: None. HEART / MEDIASTINUM: No significant abnormality. LUNGS / PLEURA: No significant pulmonary or pleural abnormality. No pneumothorax. ADDITIONAL FINDINGS: No significant additional findings. IMPRESSION: 1. No acute findings. Signer Name: Simeon Caputo MD Signed: 03/01/2022 6:54 AM Workstation Name: [email or web address]
[2022-03-01 07:17] LABS: Hematocrit 32.8 % (30.3-42.9); Mean Corpuscular HGB Conc 31 % (30-34); Platelet Count 450 K/mm3 (140-440); Red Blood Count 5.26 M/mm3 (3.65-5.03)
[2022-03-01 07:22] LABS: Mean Corpuscular Volume 62 fl (79-97); Red Cell Distribution Width 30.1 % (13.2-15.2)
[2022-03-01 07:34] LABS: Alanine Aminotransferase 12 units/L (7-56); BUN/Creatinine Ratio 21; Blood Urea Nitrogen 15 mg/dL (7-17); Calcium 9.2 mg/dL (8.4-10.2); Hemolysis Index 4
[2022-03-01] MEDS ORDERED: ONDANSETRON 4 MG/2 ML INJ IV ONE (07:42)
[2022-03-01] MEDS ORDERED: MORPHINE 4 MG/1 ML INJ IV ONE (07:42)
--- NOTE | 2022-03-01 07:48 | Emergency Department Report ---
<LIVIA BELLO - Last Filed: 03/01/22 07:43> ED Abdominal Pain HPI - General Chief Complaint: Chest Pain Stated Complaint: CROHNS Time Seen by Provider: 03/01/22 07:34 Source: patient Mode of arrival: Ambulatory Limitations: No Limitations - History of Present Illness Initial Comments: 51 yof with pmh of Crohn's disease presents to ed for evaluation of several day history of worsening bilateral lower abdominal pain, pelvic pain, and pain to vaginal area. She states that she has a known fistula and the past few days, she has been passing solid stool from her vagina. She states that she is 2 months s/p osteomy reversal. She states that yesterday she developed mid sternal chest pain that is non radiating and non reproducible with sob, n/v, dizziness. She denies diaphoresis. She states that pain is 10/10 and she hurts from her neck to her pelvic area. MD Complaint: abdominal pain -: Gradual, days(s) (6-7) Location: diffuse Radiation: none Migration to: no migration Severity: severe Severity scale (0 -10): 10 Quality: aching Consistency: constant Associated Symptoms: nausea, vomiting, syncope. denies: diarrhea, fever, chills, constipation, dysuria, hematemesis, hematochezia, melena, hematuria, anorexia - Related Data Previous Rx's Medication Instructions Recorded Last Taken Type oxyCODONE /ACETAMINOPHEN [Percocet 1 tab PO Q6HR PRN 3 Days #12 tablet 10/12/21 Unknown Rx 5/325 mg] predniSONE 10 mg PO .TAPER 51 Days #93 tab 10/12/21 Unknown Rx Acetaminophen [Non-Aspirin Extra 500 mg PO Q6HR PRN #30 tablet 03/01/22 Unknown Rx Strength] Nettie Root [Nettie] 250 mg PO QID PRN #30 capsule 03/01/22 Unknown Rx Ondansetron [Zofran Odt] 4 mg PO Q8HR PRN #20 tab.rapdis 03/01/22 Unknown Rx Pantoprazole Sodium [Protonix] 40 mg PO QDAY #30 tab 03/01/22 Unknown Rx Allergies Allergy/AdvReac Type Severity Reaction Status Date / Time Penicillins Allergy Rash Verified 03/01/22 08:25 ED Past Medical Hx - Past Medical History Hx Congestive Heart Failure: No Hx Diabetes: No Hx Pulmonary Embolism: No Hx Sickle Cell Disease: Yes (SICKLE CELL TRAIT) Hx Arthritis: Yes (rhuematoid) Hx Headaches / Migraines: No Hx Kidney Stones: No Hx Asthma: No Hx COPD: No Hx Tuberculosis: No Hx Dementia: No Hx HIV: No Additional medical history: Anemia. Crohns disease. rheumatiod arthritis - Surgical History Hx Coronary Stent: No Hx Open Heart Surgery: No Hx Cholecystectomy: No Hx Appendectomy: No Hx Breast Surgery: No Additional Surgical History: D+C, colon resection with colostomy - Social History Smoking Status: Current Every Day Smoker - Medications Home Medications: Home Medications Medication Instructions Recorded Confirmed Last Taken Type oxyCODONE /ACETAMINOPHEN [Percocet 1 tab PO Q6HR PRN 3 Days #12 tablet 10/12/21 Unknown Rx 5/325 mg] predniSONE 10 mg PO .TAPER 51 Days #93 tab 10/12/21 Unknown Rx Acetaminophen [Non-Aspirin Extra 500 mg PO Q6HR PRN #30 tablet 03/01/22 Unknown Rx Strength] Nettie Root [Enttie] 250 mg PO QID PRN #30 capsule 03/01/22 Unknown Rx Ondansetron [Zofran Odt] 4 mg PO Q8HR PRN #20 tab.rapdis 03/01/22 Unknown Rx Pantoprazole Sodium [Protonix] 40 mg PO QDAY #30 tab 03/01/22 Unknown Rx ED Physical Exam - General Limitations: No Limitations ED Medical Decision Making - Lab Data Result diagrams: 03/01/22 06:59 03/01/22 06:59 ED Disposition Clinical Impression: Abdominal pain, Nonspecific chest pain, History of syncope, Crohn's disease, Recto-vaginal fistula Disposition: 01 HOME / SELF CARE / HOMELESS Condition: Good Additional Instructions: Do not take Metformin medication for the next 2 days. Do not take Motrin, ibuprofen, Naprosyn, Aleve. Patient may take the prescribed pain medication, nausea medications as needed and directed. Recommend follow-up with a drug regulatory affairs specialist within the next 3 to [address] or operate motor vehicles for the next 6 months, or until cleared to do so by her primary care doctor or drug regulatory affairs specialist. Contacted your colorectal surgeon, and they would like you to follow-up in the office as soon as possible. Your colorectal surgeon advises that you may call of his office first thing tomorrow morning, but the front office staff know that you were seen in the ER today, and that you can be overbooked for an expedited appointment to address and schedule repair for rectovaginal fistula Recommend follow-up with your colorectal surgeon, Dr. Richard Chacko, ([id number] [facility] [address] [facility] [address] [place] [address] ) As soon as possible please have your colorectal surgeon contact the medical records department to obtain copies of laboratory studies and radiology studies. Patient may take the prescribed pain medications, nausea medication as needed and directed. Patient may continue current outpatient medications otherwise, with the exceptions as directed. Please return to the emergency room right away with new pain, worsened pain, migration of pain, projectile vomiting, change in mental status, confusion, inability tolerate liquid feeds, new, worsened or different symptoms not present on the initial emergency room evaluation [address] [facility] [address] [facility] [address] [place] [address] We also recommend follow-up with your flight attendant or GI group within the next 4 weeks Prescriptions: Nettie Root [Nettie] 250 mg PO QID PRN #30 capsule PRN Reason: Nausea Acetaminophen [Non-Aspirin Extra Strength] 500 mg PO Q6HR PRN #30 tablet PRN Reason: Pain , Severe (7-10) Pantoprazole Sodium [Protonix] 40 mg PO QDAY #30 tab Ondansetron [Zofran Odt] 4 mg PO Q8HR PRN #20 tab.rapdis PRN Reason: Nausea Referrals: [facility] [Provider Group] - 3-5 Days [facility] [Provider Group] - 3-5 Days [facility] [Provider Group] - 3-5 Days <INOCENCIA GARCIA - Last Filed: 03/01/22 14:34> ED Abdominal Pain HPI - History of Present Illness Initial Comments: During the history and physical examination, I am chaperoned by nurse Lane Goldsmith. This patient is a 51-year-old female, with a complex past medical history, including rheumatoid arthritis, sickle cell, Crohn's disease, status post ileostomy, anal fistula, status post surgical repair last year. The patient presents to the ER today with complaint of diffuse abdominal cramping, which is chronic. She endorses intermittent brown and black stool, and she also endorses intermittent feculent discharge from her vagina. This feculent discharge from her vagina has been present for about a month and a half. The patient makes no complaint of headache, neck pain, but states that she has chest pain which is constant since yesterday, that radiates to her back, without diaphoresis, exertional shortness of breath, she does have chronic episodes of nausea, but does not feel like the chest pain is associated with worsening nausea. The patient denies travel, surgery, immobilization, DVT/PE risk factors. The patient also reports that a few days ago, she had an episode of loss of consciousness after defecating. ED Review of Systems ROS: Stated complaint: CROHNS Other details as noted in HPI ED Physical Exam - General Limitations: No Limitations General appearance: alert, anxious - Head Head exam: Present: atraumatic, normocephalic - Eye Eye exam: Present: normal appearance, EOMI. Absent: nystagmus - ENT ENT exam: Present: normal exam, normal orophraynx, mucous membranes moist, normal external ear exam - Neck Neck exam: Present: normal inspection, full ROM. Absent: tenderness, meningismus - Respiratory Respiratory exam: Present: normal lung sounds bilaterally. Absent: respiratory distress, wheezes, rales, rhonchi, stridor, decreased breath sounds - Cardiovascular Cardiovascular Exam: Present: regular rate, normal rhythm, normal heart sounds. Absent: bradycardia, tachycardia, irregular rhythm, systolic murmur, diastolic murmur, rubs, gallop - GI/Abdominal GI/Abdominal exam: Present: soft. Absent: distended, tenderness, guarding, rebound, rigid, pulsatile mass - Rectal Rectal exam: Present: normal inspection (Normal external examination. Patient refused digital rectal examination. Chaperoned by nurse Lane Goldsmith) - External exam: Present: normal external exam, other (Feculent material noted. Patient refused internal examination. Uncertain if external feces secondary to feces from internal vaginal vault, or from anus). Absent: erythema, swelling, lesions, lacerations, bleeding - Extremities Exam Extremities exam: Present: normal inspection, full ROM, other (2+ pulses noted i n the bilateral upper and lower extremities. There is no palpable cord. negative Homans sign. Muscular compartments are soft. The pelvis is stable.). Absent: pedal edema, calf tenderness - Back Exam Back exam: Present: normal inspection. Absent: tenderness, CVA tenderness (R), CVA tenderness (L), paraspinal tenderness, vertebral tenderness - Neurological Exam Neurological exam: Present: alert, oriented X3, other (No facial droop. Tongue midline. Extraocular movements intact bilaterally. Facial sensation intact to light touch in V1, V2, V3 distribution bilaterally. 5 and a 5 strength in 4 extremities. Sensation intact to light touch in 4 extremities.). Absent: motor sensory deficit - Psychiatric Psychiatric exam: Present: anxious - Skin Skin exam: Present: warm, rash, other (Chronic hyperpigmentation noted) ED Course Vital Signs 03/01/22 03/01/22 03/01/22 06:25 06:29 08:22 Temperature 97.6 F Pulse Rate 101 H 93 H 86 Respiratory 16 15 Rate Blood Pressure 140/102 O2 Sat by Pulse 99 Oximetry 03/01/22 03/01/22 03/01/22 08:30 08:46 09:00 Temperature Pulse Rate 89 86 88 Respiratory 18 17 17 Rate Blood Pressure 124/87 O2 Sat by Pulse Oximetry 03/01/22 03/01/22 03/01/22 09:11 09:16 09:30 Temperature Pulse Rate 85 89 Respiratory 13 29 H Rate Blood Pressure O2 Sat by Pulse 100 100 100 Oximetry 03/01/22 03/01/22 03/01/22 09:46 10:00 10:16 Temperature Pulse Rate 97 H 97 H 89 Respiratory 21 12 19 Rate Blood Pressure O2 Sat by Pulse 100 100 Oximetry 03/01/22 03/01/22 03/01/22 10:30 10:46 11:00 Temperature Pulse Rate 89 87 97 H Respiratory 23 21 12 Rate Blood Pressure 130/88 130/88 125/99 O2 Sat by Pulse 94 100 100 Oximetry 03/01/22 03/01/22 03/01/22 11:16 11:30 11:46 Temperature Pulse Rate 93 H 93 H 89 Respiratory 21 17 27 H Rate Blood Pressure 125/99 125/99 125/99 O2 Sat by Pulse 100 100 100 Oximetry 03/01/22 03/01/22 03/01/22 12:00 12:16 12:30 Temperature Pulse Rate 95 H 94 H 87 Respiratory 29 H 36 H 38 H Rate Blood Pressure 123/82 123/82 123/82 O2 Sat by Pulse 99 100 100 Oximetry 03/01/22 03/01/22 03/01/22 12:46 13:12 13:16 Temperature Pulse Rate 94 H 88 Respiratory 21 18 Rate Blood Pressure 123/82 125/83 125/83 O2 Sat by Pulse 97 100 Oximetry 03/01/22 03/01/22 03/01/22 13:30 13:46 14:00 Temperature Pulse Rate 88 84 88 Respiratory 16 21 16 Rate Blood Pressure 125/83 125/83 115/83 O2 Sat by Pulse 100 100 100 Oximetry 03/01/22 14:16 Temperature Pulse Rate 84 Respiratory 20 Rate Blood Pressure 115/83 O2 Sat by Pulse 100 Oximetry - Reevaluation(s) Reevaluation #1: 03/01/22 10:32 Differential diagnosis, include but limited to: Chronic pain, narcotic bowel syndrome, chronic Crohn's disease, rectovaginal fistula, orthostasis, vagal event, dehydration, GERD, gastritis, hiatal hernia, coronary artery disease Assessment and plan: 51-year-old female, who is not currently tachycardic, tachypneic or hypoxic, who denies DVT/PE risk factors, who is low risk by Wells criteria for pulmonary embolism, low risk for major adverse cardiac event as per heart score, EKG unchanged x2, troponin negative x1 in the context of chest pain present since yesterday, chest pain present for greater than 8 hours, therefore, acute myocardial infarction is ruled out x1, with primary complaint of abdominal pain, secondary complaint of intermittent brown or black stool, and feculent discharge coming from her vagina, with additional complaints of chest pain since yesterday, and endorsement of loss of consciousness after defecating a few days ago. Abdomen soft and benign. Patient declined internal rectal examination and internal vaginal examination. Externally, I do appreciate external feces on top of the vagina, and the external anus appears to be unremarkable. Laboratory studies nonactionable. EKG nonactionable. Chest x-ray unremarkable. We will treat the patient's symptoms. We did recommend CT scan of the abdomen pelvis with IV and rectal contrast which the patient declined. The patient is awake, alert, oriented of sound mind, and exhibits decision-making capacity. She is agreeable to CT scan with oral contrast. We will reassess once CT scan has resulted. Even if a rectovaginal fistula is present, patient endorses having had the symptoms for about a month and a half. Therefore, it might be reasonable to have her follow-up with an outpatient colorectal specialist, once initial diagnostics have resulted. In any event, we will continue to observe the patient, and reassess once her diagnostics have resulted. Patient observed in the ER for hours thus far, and while anxious, has not had any episodes of loss of consciousness or syncope. Hemoglobin, hematocrit unremarkable, and she has brown external stool, with no evidence of black stool on my exam 03/01/22 14:00 Patient reexamined multiple times. Resting comfortably in stretcher and in no acute distress. Troponin negative x2. Chest x-ray unremarkable. CT scan abdomen pelvis with IV and oral contrast demonstrates a rectovaginal fistula. Do not suspect labial abscess at this time. This is a finding that that has likely been here chronically, and for weeks/months. It is not acutely decompensated. I contacted my general surgeon on-call, Dr. Ford. Discussed the patient's history, physical, laboratory studies imaging studies and CT scan findings. We both agree that this finding does not require emergent surgical consultation admission or antibiotics. Close outpatient follow-up with colorectal Patient reports that her colo rectal surgeon is Dr. Phan Chacko, in [facility] Have reached out to his office, attempting to get in touch with him or one of his colleagues to arrange close outpatient follow-up 03/01/22 14:09 Reevaluation #2: 03/01/22 14:08 ga mascara molder aware 02/15/2022 02/15/2022 2 Hydrocodone-Acetamin 5-325 Mg 9.00 3 Br Imelda [id number] [facility] ([id number]) 0 15.00 MME [place] 02/11/2022 02/10/2022 2 Oxycodone-Acetaminophen 5-325 12.00 3 Ky Neal [id number] [facility] ([id number]) 0 30.00 [place] 01/11/2022 01/11/2022 1 Oxycodone-Acetaminophen 10-325 30.00 7 De Cho [id number] [facility] ([id number]) 0 64.29 [place] 12/20/2021 12/20/2021 1 Morphine Sulf Er 30 Mg Tablet 30.00 15 De Cho [id number] [facility] ([id number]) 0 60.00 [place] 12/20/2021 12/20/2021 1 Hydrocodone-Acetamin 10-325 Mg 10.00 3 De Cho [id number] [facility] ([id number]) 0 33.33 MME Medicaid [place] 09/26/2021 09/14/2021 1 Oxycodone-Acetaminophen 10-325 6.00 3 Sa Lat [id number] [facility] ([id number]) 0 30.00 MME Medicaid [place] 09/06/2021 09/06/2021 1 Oxycodone-Acetaminophen 10-325 15.00 3 De Cho [id number] Wal ([id number]) 0 75.00 MME [place] 07/02/2021 07/02/2021 2 Hydrocodone-Acetamin 10-325 Mg 20.00 5 De Cho [id number] [facility] ([phone]) 0 40.00 MME [place] 03/01/22 14:24 I contacted the patient's general surgeon, Dr. Chacko Discussed the patient's history, physical, laboratory studies imaging findings, and CT scan findings as well as clinical impression. He advises me that he has been trying to get in touch with the patient to arrange close outpatient follow- up for scheduled repair. He further advises that the patient may contact his office first thing in the morning, and will be happy to accommodate overbook/expedited appointment to arrange definitive fixation. We will not discharge with narcotic therapy at this time, I suspect that this patient may be narcotic dependent. Discharged with nonnarcotic medications. She may follow-up with outpatient primary care and cardiology for complaint of nonspecific chest pain and syncope, which is likely vagal in nature Reevaluation #3: 03/01/22 14:34 All questions answered. Return precautions reviewed. Patient asking to eat. ED Medical Decision Making - Lab Data Result diagrams: 03/01/22 06:59 03/01/22 06:59 Vital Signs 03/01/22 03/01/22 03/01/22 06:25 06:29 08:22 Temperature 97.6 F Pulse Rate 101 H 93 H 86 Respiratory 16 15 Rate Blood Pressure 140/102 O2 Sat by Pulse 99 Oximetry 03/01/22 08:30 Temperature Pulse Rate 89 Respiratory 18 Rate Blood Pressure 124/87 O2 Sat by Pulse Oximetry Lab Results 03/01/22 03/01/22 03/01/22 Range/Units 06:59 06:59 06:59 WBC 6.2 (4.5-11.0) K/mm3 RBC 5.26 H (3.65-5.03) M/mm3 Hgb 10.0 L (10.1-14.3) gm/dl Hct 32.8 (30.3-42.9) % MCV 62 L (79-97) fl MCH 19 L (28-32) pg MCHC 31 (30-34) % RDW 30.1 H (13.2-15.2) % Plt Count 450 H (140-440) K/mm3 Sodium 139 (137-145) mmol/L Potassium 4.5 (3.6-5.0) mmol/L Chloride 106.6 (98-107) mmol/L Carbon Dioxide 21 L (22-30) mmol/L Anion Gap 16 mmol/L BUN 15 (7-17) mg/dL Creatinine 0.7 (0.6-1.2) mg/dL Estimated GFR > 60 ml/min BUN/Creatinine Ratio 21 % Glucose 92 (65-100) mg/dL Calcium 9.2 (8.4-10.2) mg/dL Total Bilirubin < 0.20 (0.1-1.2) mg/dL AST 15 (5-40) units/L ALT 12 (7-56) units/L Alkaline Phosphatase 106 (35-129) units/L Troponin T < 0.010 (0.00-0.029) ng/mL Total Protein 7.4 (6.3-8.2) g/dL Albumin 4.0 (3.9-5) g/dL Albumin/Globulin Ratio 1.2 % Lipase 26 (13-60) units/L - EKG Data -: EKG Interpreted by Me EKG shows normal: sinus rhythm Rate: normal - EKG Data When compared to previous EKG there are: no significant change 03/01/22 10:31 EKG #1 is interpreted at 06: 3 3 Sinus rhythm, 93 bpm. Normal axis, normal P wave axis, normal P wave axis, left ventricular hypertrophy. QTC 4 5 1 ms. Not a STEMI. Unchanged from prior EKG from September 2021. EKG #2 is unchanged from prior. Another EKG is a STEMI. - Radiology Data Radiology results: pending, report reviewed, image reviewed interpreted by me: 1 view x-ray of the chest interpreted myself, no infiltrate, pneumonia pneumothorax, clear lung CHEST 1 VIEW INDICATION: acute chest pain. COMPARISON: 03/01/2022 FINDINGS: Support devices: None. Heart: Within normal limits. Lungs/Pleura: No acute air space or interstitial disease. Additional findings: None. IMPRESSION: No acute findings. Signer Name: Fransisco Martins Jr, MD Signed: 03/01/2022 9:25 AM Workstation Name: [id number] CHEST 1 VIEW INDICATION: acute chest pain. COMPARISON: 03/01/2022 FINDINGS: Support devices: None. Heart: Within normal limits. Lungs/Pleura: No acute air space or interstitial disease. Additional findings: None. IMPRESSION: No acute findings. Signer Name: Fransisco Martins Jr, MD Signed: 03/01/2022 9:25 AM Workstation Name: [id number] CT ABDOMEN AND PELVIS WITH CONTRAST INDICATION / CLINICAL INFORMATION: abd pain chrones disease, feces from vagina OMNI 300 100 ML. TECHNIQUE: Axial CT images were obtained through the abdomen and pelvis after 100 cc of Omnipaque [address] scans at this location are performed using CT dose reduction for [employer] by means of automated exposure control. COMPARISON: 10/10/2021 FINDINGS: LOWER CHEST: No significant abnormality. LIVER: No significant abnormality. GALLBLADDER: No significant abnormality. BILE DUCTS: No significant abnormality. PANCREAS: No significant abnormality. SPLEEN: No significant abnormality. ADRENALS: No significant abnormality. RIGHT KIDNEY / URETER: No significant change. Small cyst in the lower pole is again noted. There is a small nonobst ructing calyceal stone in the upper pole. LEFT KIDNEY / URETER: Unchanged. STOMACH / SMALL BOWEL: There has been interval reversal of the right lower quadrant ileostomy. The distal most ileum appears to be narrowed possibly representing stricture there is no obstruction related to this. (Image 124 series 2. COLON: There is contrast noted in the colon. The right, transverse, left, and sigmoid colon wall is normal in thickness. The appearance is improved when compared to the previous CT. The rectum and vagina or abnormal in appearance. There is some wall thickening noted in the distal rectum. There are is communication between the distal rectum and the vagina with feculent material and air noted in the vagina. There is fluid density noted in the labia bilaterally measuring approximately 2.3 cm on the left and 1.7 cm on the right. These could represent complex cysts. This could represent abscess. APPENDIX: No significant abnormality. PERITONEUM: No free fluid. No free air. No fluid collection. LYMPH NODES: No significant adenopathy. AORTA / ARTERIES: No significant abnormality. IVC / VEINS: No significant abnormality. URINARY BLADDER: No significant abnormality. REPRODUCTIVE ORGANS: There is feculent material and air noted in the vagina. There appears to be a relatively broad communication between the vagina and the distal rectum. ADDITIONAL FINDINGS: None. SKELETAL SYSTEM: No acute abnormality. IMPRESSION: 1. There is a relatively broad communication between the vagina and the distal rectum with feculent material noted in the vagina. 2. There are hypodensities noted in the labia bilaterally these could represent follicular cysts. These could represent abscesses. There is no air within the. 3. There has been interval takedown of the right lower quadrant ileostomy. The distal most aspect of the small bowel appears narrowed and possibly strictured. There is no obstruction related to this. Signer Name: Justice Curry MD Signed: 03/01/2022 12:43 PM Workstation Name: [id number] Critical Care Time: Yes Critical care time in (mins) excluding proc time.: 35 Critical care attestation.: If time is entered above; I have spent that time in minutes in the direct care of this critically ill patient, excluding procedure time. Critical Care Time: Critical care time includes multiple bedside reevaluations, multiple patient reevaluations, interpretation of laboratory studies, radiology studies, and multiple discussions with consulting services, including patient's primary colorectal surgeon, as well as general surgery. ED Disposition Is pt being admited?: No Does the pt Need Aspirin: No
[2022-03-01] MEDS ORDERED: SODIUM CHLORIDE 0.9% 1000 ML 1,000 ML IV ONE (09:12)
[2022-03-01] MEDS ORDERED: PANTOPRAZOLE 40 MG INJ IV ONE (09:13)
--- NOTE | 2022-03-01 10:30 | XRay Report ---
CHEST 1 VIEW INDICATION: acute chest pain. COMPARISON: 03/01/2022 FINDINGS: Support devices: None. Heart: Within normal limits. Lungs/Pleura: No acute air space or interstitial disease. Additional findings: None. IMPRESSION: No acute findings. Signer Name: Fransisco Martins Jr, MD Signed: 03/01/2022 10:25 AM Workstation Name: [id number]
[2022-03-01] MEDS ORDERED: HYDROmorphone 1 MG/1 ML INJ IV ONE (11:43)
--- NOTE | 2022-03-01 13:47 | Cat Scan Report ---
CT ABDOMEN AND PELVIS WITH CONTRAST INDICATION / CLINICAL INFORMATION: abd pain chrones disease, feces from vagina OMNI 300 100 ML. TECHNIQUE: Axial CT images were obtained through the abdomen and pelvis after 100 cc of Omnipaque [address] scans at this location are performed using CT dose reduction for ALARA by means of automated exposure control. COMPARISON: 10/10/2021 FINDINGS: LOWER CHEST: No significant abnormality. LIVER: No significant abnormality. GALLBLADDER: No significant abnormality. BILE DUCTS: No significant abnormality. PANCREAS: No significant abnormality. SPLEEN: No significant abnormality. ADRENALS: No significant abnormality. RIGHT KIDNEY / URETER: No significant change. Small cyst in the lower pole is again noted. There is a small nonobstructing calyceal stone in the upper pole. LEFT KIDNEY / URETER: Unchanged. STOMACH / SMALL BOWEL: There has been interval reversal of the right lower quadrant ileostomy. The di stal most ileum appears to be narrowed possibly representing stricture there is no obstruction relate d to this. (Image 124 series 2. COLON: There is contrast noted in the colon. The right, transverse, left, and sigmoid colon wall is n ormal in thickness. The appearance is improved when compared to the previous CT. The rectum and vagin a or abnormal in appearance. There is some wall thickening noted in the distal rectum. There are is c ommunication between the distal rectum and the vagina with feculent material and air noted in the vag sharyn. There is fluid density noted in the labia bilaterally measuring approximately 2.3 cm on the left and 1.7 cm on the right. These could represent complex cysts. This could represent abscess. APPENDIX: No significant abnormality. PERITONEUM: No free fluid. No free air. No fluid collection. LYMPH NODES: No significant adenopathy. AORTA / ARTERIES: No significant abnormality. IVC / VEINS: No significant abnormality. URINARY BLADDER: No significant abnormality. REPRODUCTIVE ORGANS: There is feculent material and air noted in the vagina. There appears to be a re latively broad communication between the vagina and the distal rectum. ADDITIONAL FINDINGS: None. SKELETAL SYSTEM: No acute abnormality. IMPRESSION: 1. There is a relatively broad communication between the vagina and the distal rectum with feculent m aterial noted in the vagina. 2. There are hypodensities noted in the labia bilaterally these could represent follicular cysts. The se could represent abscesses. There is no air within the. 3. There has been interval takedown of the right lower quadrant ileostomy. The distal most aspect of the small bowel appears narrowed and possibly strictured. There is no obstruction related to this. Signer Name: Justice Curry MD Signed: 03/01/2022 1:43 PM Workstation Name: [id number]
[2022-03-01 14:26] VITALS: BP 115/83
[2022-03-01 14:59] LABS: Anisocytosis 1+; Band Neutrophils # (Manual) 0.1 K/mm3; Hypochromasia 2+; Total Cells Counted 100
[2022-03-01 15:00] LABS: Large Platelets Few; Ovalocytes 1+; Platelet Estimate Consistent w Auto; Spherocytes 1+
--- NOTE | 2022-03-04 13:54 | Electrocardiograph Report ---
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
--- NOTE | 2022-03-04 13:59 | Electrocardiograph Report ---
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
== END 2022-03-01 14:45 | disposition home or self-care (01) ==
LOC: ED 06:22
DX: K50.90 Crohn's disease, unspecified, without complications (principal); N82.8 Other female genital tract fistulae; R10.31 Right lower quadrant pain; R10.32 Left lower quadrant pain; R07.89 Other chest pain; M19.90 Unspecified osteoarthritis, unspecified site; F17.200 Nicotine dependence, unspecified, uncomplicated; Z88.0 Allergy status to penicillin; Z79.899 Other long term (current) drug therapy
CPT/HCPCS: 36415; 71045; 71046; 74177; 80053; 83690; 84484; 85007; 85025; 93005; 96361; 96374; 96375; 99284; C9113; J1170; J2270; J2405; J7030; Q9967; Q0162